=== PATIENT | male | born 1995 | race Caucasian/White ===

== ENCOUNTER 2023-11-09 10:03 | Emergency (ER) | payer OTHER ==
[~2023-11-09] VITALS: Ht 190.5 cm; Wt 127.0 kg
[2023-11-09 10:10] VITALS: BP 152/96; PULSE 83; TEMP 98.2; O2SAT 96
[2023-11-09] MEDS ORDERED: GUAI120017 MT (11:30)
[2023-11-09 11:45] VITALS: RESP 17
[2023-11-09] MEDS ORDERED: ALBU6.7H15 INH (13:52)
== END 2023-11-09 12:00 | disposition home or self-care (01) ==
LOC: ER 10:03
DX: J21.0 Acute bronchiolitis due to respiratory syncytial virus (principal)
CPT/HCPCS: 71045; 87420; 99284